=== PATIENT | female | born 1985 | race Two or more races ===

== ENCOUNTER 2024-11-17 05:36 | Emergency (ER) | payer MEDICAID, SELFPAY ==
[2024-11-17] VITALS (8 sets, daily range): BP systolic 143–233; BP diastolic 88–136; PULSE 57–87; RESP 18–20; TEMP 36.8–37.1; O2SAT 97–100; BMI 45.4
--- NOTE | 2024-11-17 05:56 | EKG_ITS ---
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
[2024-11-17] MEDS: METOCLOPRAMIDE INJ 5 MG/ML VIAL 2 ML 10 MG IM (07:03)
[2024-11-17] MEDS: KETOROLAC INJ 60 MG/2 ML VIAL 30 MG IM (07:03)
[2024-11-17] MEDS: Lisinopril 20 MG TABLET PO (07:04)
[2024-11-17] MEDS: DiphenhydrAMINE INJ 50 MG/ML VIAL IM (07:04)
--- NOTE | 2024-11-17 07:17 | PD.EDMEDCL ---
ED Medical Clearance RME/HPI General Chief complaint: Medical Clearance Stated complaint: MEDICAL CLEARANCE Time Seen by Provider: 11/17/24 07:17 Arrival date/time: 11/17/24 05:36 RME / HPI RME / HPI Narrative: 39 year old female with history of chronic migraines, hypertension, currently on Losartan, Carvedilol, Hydralazine, and Hydrochlorothiazide, presents to the ED BIB [facility] for medical clearance today. Per officer, while in [facility] was noted to have elevated blood pressure and advised to bring patient for further management. While in the ED patient complains of a headache that is accompanied by photophobia, nausea, and chest pain which he reports is associated to the headache. No other associated symptoms or complaints reported. Denies fevers, chills, sweats, or shortness of breath. Related Information Previous Rx's ?Medication ?Instructions ?Recorded lisinopril 20 mg tablet 20 mg PO BID #60 tabs 05/23/22 Allergies Allergy/AdvReac Type Severity Reaction Status Date / Time ibuprofen Allergy Hives Verified 05/23/22 13:40 Review of Systems Review of Systems Narrative Review of Systems: Gen: No fever, no chills EYES: No discharge, no pain HEENT: No ear pain, no congestion, no sore throat PULM: no shortness of breath, no cough, no congestion CV: +chest pain, no palpitations, no chest tightness GI: +nausea, no vomiting, no diarrhea, no pain, no constipation : No frequency, no urgency,? no dysuria Musc/skel: No joint pain, no back pain Skin: No rash, no ecchymosis, no lesions Neuro: No weakness, +headache with photophobia Past Medical History Past Medical History CARDIAC: Positive Cardiac Disorders and Hypertension; Negative Congestive Heart Failure RESPIRATORY: Positive Asthma; Negative Chronic Obstructive Pulmonary Disease (COPD) GENITOURINARY: Negative Renal Disease ENDOCRINE: Negative Diabetes Mellitus Type 1 or Diabetes Mellitus Type 2 Surgical History SURGICAL: Positive Abdominal Surgery and Section (x4) Social History SMOKING STATUS: Never smoker ED Exam Narrative Physical exam: GENERAL APPEARANCE: AxOx4, no obvious distress, nontoxic appearing HEENT: NC, AT. MMM. EOMI, clear conjunctiva, oropharynx clear. NECK: Supple without lymphadenopathy. No stiffness or restricted ROM. HEART: Normal rate and regular rhythm, normal S1/S1, no m/r/g LUNGS: CTAB, moving air well. No crackles or wheezes are heard. ABDOMEN: Soft, nontender, nondistended with good bowel sounds heard. BACK: No midline C/T/L spine pain or deformity, No CVAT, no obvious deformity. EXTREMITIES: Without cyanosis, clubbing or edema. MUSCULOSKELETAL: FROM of all major joints, no chest tenderness NEUROLOGICAL: Grossly nonfocal. Alert and oriented, moving all 4 extremities. CN not formally tested but appear grossly intact. Skin: Warm and dry without any rash. Course Quality Measures none Orders Category Date Time Status EKG (ED ONLY) *Do not use* NOW Care 11/17/24 05:56 Completed EKG (ED Only) Stat Exams 11/17/24 05:56 Draft Troponin I Stat Lab 11/17/24 07:38 Completed DiphenhydrAMINE INJ [Benadryl Inj] Med 11/17/24 06:31 Discontinued 50 mg IM X1 ONE Ketorolac Inj [Toradol Inj] Med 11/17/24 06:31 Discontinued 30 mg IM X1 ONE Lisinopril [Prinivil] Med 11/17/24 06:31 Discontinued 20 mg PO X1 ONE Metoclopramide Inj [Reglan Inj] Med 11/17/24 06:31 Discontinued 10 mg IM X1 ONE carVEDILOL [Coreg] Med 11/17/24 09:01 Discontinued 6.25 mg PO X1 ONE hydrALAZINE HCL [Apresoline] Med 11/17/24 08:05 Discontinued 25 mg PO X1 ONE hydroCHLOROthiazide Med 11/17/24 09:01 Discontinued 25 mg PO X1 ONE Reevaluation(s) Reevaluation #1: Blood pressure improved, 143/88. We reviewed all the results, analysis, and treatment plans. Patient is amenable to discharge. Strict return precautions were outlined. Patient was discharged in stable condition. Time: 09:45 Vital Signs Vital signs: Vital Signs Temperature 98.3 F 11/17/24 05:43 Pulse Rate 87 11/17/24 05:43 Respiratory Rate 20 11/17/24 05:43 Blood Pressure 209/135 H 11/17/24 05:43 Pulse Oximetry (%) 100 11/17/24 05:43 Oxygen Delivery Method Room Air 11/17/24 05:43 Pulse ox is 100% on room air which is adequate. Medical Clearance MDM Narrative MDM Narrative:: Aubrie Parker am scribing for and in the presence of Dr. Shell. 39 year old female with known history of hypertension presented to the ED, brought in by [facility] for medical clearance. Patient while in [facility] was noted to have elevated blood pressure. Patient states she is on 4 hypertensive medications which she did not recall the name of. However, external pharmacy records reviewed and medications include Hydrochlorothiazide, Hydralazine, Labetalol, and Carvedilol. In the ED the patient was given Hydrochlorothiazide, Hydralazine, and Lisinopril. Repeat blood pressure 148/88. Patient was cleared for discharge and advised to continue her medications as prescribed. Patient data External records reviewed:: [facility] previous records (I reviewed ED visit on 12/23/2023 for hypertension) Clinical information provided by:: patient and law enforcement Social determinants that could affect healthcare access:: none Patient has the following chronic illnesses:: Hypertension How is presenting disease/condition affected by chronic disease/condition?: exacerbated by Evaluation data The following diagnostics were reviewed and interpreted by me:: lab results and EKG tracing(s) Lab and/or radiology exams considered but not ordered:: None Interpretation Summary: As noted above Medications / Prescriptions Medications or Prescriptions considered but not ordered:: None Medication administrations:: Medication Administration History Discontinued Medications Carvedilol (Carvedilol 3.125 Mg Tablet) 6.25 mg PO X1 ONE Stop: 11/17/24 09:02 Last Admin: 11/17/24 09:20 Dose: Not Given Documented By: DO Non-Admin Reason: hr 57 Diphenhydramine HCl (Diphenhydramine Inj 50 Mg/Ml Vial) 50 mg IM X1 ONE Stop: 11/17/24 06:32 Last Admin: 11/17/24 07:04 Dose: 50 mg Documented By: EF Hydralazine HCl (Hydralazine Hcl 25 Mg Tablet) 25 mg PO X1 ONE Stop: 11/17/24 08:06 Last Admin: 11/17/24 08:29 Dose: 25 mg Documented By: DO Hydrochlorothiazide (Hydrochlorothiazide 12.5 Mg Capsule) 25 mg PO X1 ONE Stop: 11/17/24 09:02 Last Admin: 11/17/24 09:17 Dose: 25 mg Documented By: DO Ketorolac Tromethamine (Ketorolac Inj 60 Mg/2 Ml Vial) 30 mg IM X1 ONE Stop: 11/17/24 06:32 Last Admin: 11/17/24 07:03 Dose: 30 mg Documented By: EF Lisinopril (Lisinopril 20 Mg Tablet) 20 mg PO X1 ONE Stop: 11/17/24 06:32 Last Admin: 11/17/24 07:04 Dose: 20 mg Documented By: EF Metoclopramide HCl (Metoclopramide Inj 5 Mg/Ml Vial 2 Ml) 10 mg IM X1 ONE; Protocol Stop: 11/17/24 06:32 Last Admin: 11/17/24 07:03 Dose: 10 mg Documented By: EF See above Consultations Consultation(s) initiated? (list below): No Diagnosis Medical Clearance Differential Diagnosis: other (Hypertension, hypertensive urgency, hypertensive emergency, medical clearance for incarceration) Most likely diagnosis given after review of the tests above:: Migraine Hypertension Admission Indicated Admission indicated?: not indicated Admission Request Was there a request for admission?: No Disposition Plan Disposition Plan: Discharge Discharge Attestation Discharge Attestation: The patient and all family members were given an opportunity to ask questions and understood the discharge instructions. Discharge instructions specifically effects, indications for sooner follow up or return to the emergency department, and the expected course of current diagnosis. Patient condition: Stable Discharge Plan Plan Patient Disposition: Fdc/Court/Law Prescriptions/Referrals Prescriptions/Med Rec: No Action lisinopril 20 mg tablet 20 mg PO BID Qty: 60 0RF Referrals: Seth Wheat MD [Primary Care Provider] - In 1 week Problem List Clinical Impression: Migraine, Hypertension Patient/Caregiver Discharge Instructions Education Materials: ED Hypertension, Established, ED Headache, Migraine, Classic Additional Instructions: Follow-up with your primary doctor as need. You can return to the emergency department sooner if symptoms worsen or for any new or concerning issues. Print Language: Estonian
[2024-11-17 08:09] LABS: Troponin I < 0.020 ng/mL (0.0-0.045)
[2024-11-17] MEDS: hydrALAZINE HCL 25 MG TABLET PO (08:29)
[2024-11-17] MEDS: hydroCHLOROthiazide 12.5 MG CAPSULE 25 MG PO (09:17)
== END 2024-11-17 09:50 ==
PROVIDERS: Emergency Provider Emergency Medicine; PCP Family Medicine
DX: Z02.89 Encounter for other administrative examinations (principal); G43.909 Migraine, unspecified, not intractable, without status migrainosus; I10 Essential (primary) hypertension; I49.8 Other specified cardiac arrhythmias
CPT/HCPCS: 36415; 84484; 93005; 96372; 99283; J1200; J1885; J2765; A9270

== ENCOUNTER 2025-03-10 15:56 | Emergency (ER) | payer MEDICAID, SELFPAY ==
[2025-03-10 16:30] VITALS: BMI 46.6
[2025-03-10 16:35] VITALS: BP 162/122; BP 167/113; PULSE 81; RESP 12; TEMP 36.5; O2SAT 100
--- NOTE | 2025-03-10 17:19 | XR_ITS ---
Examination: AP chest single view Technique one AP portable semiupright chest single view Date and time: March 10, 2025, 1808 hours INDICATIONS: Chest pain shortness of breath today. FINDINGS: Poor inspiration Minimal prominence left ventricle Mild to moderate vascular congestion The osseous structures are intact IMPRESSION: Poor inspiratory effort chest x-ray Consider repeat better inspiratory effort shows follow-up to exclude vascular congestion
--- NOTE | 2025-03-10 17:19 | EKG_ITS ---
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
--- NOTE | 2025-03-10 17:19 | XR_ITS ---
Examination: CT brain head without contrast. 2-D sagittal coronal reconstructions Date and time of exam:March 10, 2025, 1758 hours Comparison December 23, 2023 INDICATIONS: Onset headaches today CTDI: vol (mGy):79.5 DLP: (mGycm):1609 Technique: Multiple CT axial sections of the brain have been obtained, 5 mm slice thickness. Contrast has not been administered. 2-D sagittal, coronal reconstructions have been obtained Low dose protocols were performed. One or more of the following dose reduction techniques were used; automated exposure control, adjustment of the mA and/or KV according to patient size, use of iterative reconstruction technique. Findings: No significant ventricular enlargement. Intra-axial or extra-axial hemorrhage density is not seen. No mass effect or midline shift Basal cisterns are not remarkable. Fourth ventricle is midline. Cranial vault intact. Impression: Negative for acute hemorrhage, mass effect or midline shift Mild chronic frontal ethmoid sinusitis Advise clinical correlation follow up accordingly
--- NOTE | 2025-03-10 17:20 | EDNOTE_ITS ---
ED Medical Clearance E/HPI General Chief complaint: Medical Clearance Stated complaint: SKILLED NURSING CLEARANCE Time Seen by Provider: 03/10/25 16:32 Arrival date/time: 03/10/25 15:56 RME / HPI RME / HPI Narrative: 39-year-old female patient with significant history of hypertension, morbid obesity, today patient was incarcerated while in the skilled nursing patient's been complaining of headache, chest pain, since this morning, severity moderate. Patient also complained of tingling sensation to the left upper extremity. Patient denies any slurring of speech denies any focal neurologic deficit. Patient is ambulatory. Denies any trauma or fall. Related Information Previous Rx's ?Medication ?Instructions ?Recorded lisinopril 20 mg tablet 20 mg PO BID #60 tabs Allergies Allergy/AdvReac Type Severity Reaction Status Date / Time ibuprofen Allergy Hives Verified 03/10/25 16:35 Review of Systems Review of Systems Narrative Review of Systems: Review of system reviewed and within normal limits except mentioned in HPI ED Exam Narrative Physical exam: VITAL SIGNS: Reviewed. GENERAL APPEARANCE: Alert and interactive, follows commands, no acute distress, HEAD AND FACE: Non-traumatic. ENT: PERRL, pink conjunctivitis, eyelid no trauma, Mucous membrane moist. NECK: Supple, nontender, no nuchal rigidity. CHEST: No tenderness, no crepitus, no paradoxical movement, no retractions. LUNGS: Clear, well ventilated, symmetric, no rales, no wheezing, no ronchi, no stridor, good breath sounds bilaterally. HEART: Regular rate, regular rhythm, no murmur, no gallops. ABDOMEN: Soft, positive bowel sounds, nondistended, no guarding, nontender, no rebound, no masses, RECTAL: Deferred. GENITAL: Deferred. NEUROLOGICAL: Gross motor function intact sensory function intact, Appropriate for age. MUSCULOSKELETAL: low back nontender, full range of motion. EXTREMITIES: Nontender, full range of motion. SKIN: Color pink, dry, no rash, no lacerations, no abrasions, no contusions. LYMPHATICS: Deferred. Course Quality Measures none Orders Category Date Time Status EKG (ED ONLY) *Do not use* NOW Care 03/10/25 17:[address] head/brain wo con Stat Exams 03/10/25 17:19 Completed EKG (ED Only) Stat Exams 03/10/25 17:19 Draft XR chest 1V Stat Exams 03/10/25 17:19 Completed CBC Stat Lab 03/10/25 17:33 Completed Comprehensive Metabolic Panel Stat Lab 03/10/25 17:33 Completed Partial Thromboplastin Time Stat Lab 03/10/25 17:33 Completed Troponin I Stat Lab 03/10/25 17:33 Completed Acetaminophen Tab [Tylenol ES Tab] Med 03/10/25 17:19 Discontinued 1,000 mg PO X1 ONE Nitroglycerin [Nitrostat 1/150] Med 03/10/25 17:19 Discontinued 0.4 mg SL Q5MIN PRN Potassium Chloride [K-Dur] Med 03/10/25 18:33 Discontinued 40 meq PO X1 ONE cloNIDine HCL [Catapres] Med 03/10/25 17:19 Discontinued 0.1 mg PO X1 ONE Vital Signs Vital signs: Vital Signs Temperature 97.7 F 03/10/25 16:35 Pulse Rate 81 03/10/25 16:35 Respiratory Rate 12 03/10/25 16:35 Blood Pressure 162/122 H 03/10/25 16:35 Pulse Oximetry (%) 100 03/10/25 16:35 Oxygen Delivery Method Room Air 03/10/25 16:35 Medical Clearance MDM Narrative MDM Narrative:: 39-year-old female patient with significant history of hypertension, morbid obesity, today patient was incarcerated while in the skilled nursing patient's been complaining of headache, chest pain, since this morning, severity moderate. P atient also complained of tingling sensation to the left upper extremity. Patient denies any slurring of speech denies any focal neurologic deficit. Patient is ambulatory. Denies any trauma or fall. EKG showed junctional rhythm with occasional ventricular premature complexes, ventricular rate of 60 bpm, no ST segment elevation or depression noted. Patient's troponin today came back unremarkable. Chest x-ray came back unremarkable. CT scan of the head also came back normal. Patient blood pressure was noted to be 146/89 prior to discharge back to skilled nursing. Patient is medically cleared for incarceration. Patient data External records reviewed:: None Clinical information provided by:: patient Social determinants that could affect healthcare access:: none Patient has the following chronic illnesses:: Hypertension How is presenting disease/condition affected by chronic disease/condition?: exacerbated by Evaluation data The following diagnostics were reviewed and interpreted by me:: lab results, radiology exam(s) and EKG tracing(s) Lab and/or radiology exams considered but not ordered:: None Interpretation Summary: See results MDM Medications / Prescriptions Medications or Prescriptions considered but not ordered:: None Medication administrations:: Medication Administration History Discontinued Medications Acetaminophen (Acetaminophen 500 Mg Tablet) 1,000 mg PO X1 ONE Stop: 03/10/25 17:20 Last Admin: 03/10/25 17:31 Dose: 1,000 mg Documented By: GINA Clonidine (Clonidine Hcl 0.1 Mg Tablet) 0.1 mg PO X1 ONE Stop: 03/10/25 17:20 Last Admin: 03/10/25 17:31 Dose: 0.1 mg Documented By: GINA Nitroglycerin (Nitroglycerin 0.4 Mg Subl Btl #25) 0.4 mg SL Q5MIN PRN PRN Reason: CHEST PAIN Last Admin: 03/10/25 17:34 Dose: 0.4 mg Documented By: GINA Potassium Chloride (Potassium Chloride 20 Meq Tabcr) 40 meq PO X1 ONE Stop: 03/10/25 18:34 Last Admin: 03/10/25 18:50 Dose: 40 meq Documented By: ELLY Clonidine Tylenol and potassium replacement Consultations Consultation(s) initiated? (list below): No Diagnosis Medical Clearance Differential Diagnosis: other (Medical screening exam) Most likely diagnosis given after review of the tests above:: Medical screening exam Admission Indicated Admission indicated?: not indicated Admission Request Was there a request for admission?: No Disposition Plan Disposition Plan: Discharge Discharge Attestation Discharge Attestation: The patient and all family members were given an opportunity to ask questions and understood the discharge instructions. Discharge instructions specifically effects, indications for sooner follow up or return to the emergency department, and the expected course of current diagnosis. Patient condition: Stable Discharge Plan Plan Patient Disposition: Prison/Court/Law Discharge Disposition comment: Stable Patient condition on transfer: Stable Prescriptions/Referrals Prescriptions/Med Rec: No Action lisinopril 20 mg tablet 20 mg PO BID Qty: 60 0RF Referrals: No Primary/Family,Physician [Primary Care Provider] - In 1 week Problem List Clinical Impression: Medical clearance for incarceration, Hypertension, Chest pain, Headache Patient/Caregiver Discharge Instructions Discharge Activity: activity as tolerated Education Materials: ED Hypertension, Established Additional Instructions: Thank you for the opportunity for serving you today. You are stable for discharged . You are advised to: Follow-up with your PCP in 1 to 2 days when you get out of skilled nursing Return to ED for worsening of symptoms Increase oral fluids Continue taking your blood pressure medication Print Language: St Helen[place] PETER/SARMAD Supervising Physician PA/WIRELESS WATCHER Supervising Physician: MD Marty
[2025-03-10 17:31] VITALS: BP 175/113; PULSE 83
[2025-03-10] MEDS: ACETAMINOPHEN 500 MG TABLET 1000 MG PO (17:31)
[2025-03-10 17:34] VITALS: BP 175/113; PULSE 77
[2025-03-10] MEDS: NITROGLYCERIN 0.4 MG SUBL BTL #25 SL (17:34)
[2025-03-10 17:55] LABS: Basophils # (Auto) 0.0 Thou/mm3 (0.0-0.2); Basophils % (Auto) 0 % (0-2.5); Eosinophils # (Auto) 0.1 Thou/mm3 (0.0-0.5); Eosinophils % (Auto) 1 % (0-10); Hematocrit 38.6 % (36.0-46.0); Hemoglobin 12.6 g/dL (12.0-16.0); Immature Granulocytes Auto 0.01 Thou/mm3 (0.00-0.00); Lymphocytes # (Auto) 2.3 Thou/mm3 (1.0-4.8); Lymphocytes % (Auto) 32 % (10-50); Mean Corpuscular HGB Conc 32.6 g/dl (31.0-37.0); Mean Corpuscular Hemoglobin 28.1 pg (25.0-35.0); Mean Corpuscular Volume 86 fL (80-100); Monocytes # (Auto) 0.6 Thou/mm3 (0.0-0.8); Monocytes % (Auto) 8 % (0-12); Neutrophils # (Auto) 4.1 Thou/mm3 (1.8-7.7); Neutrophils % (Auto) 58 % (37-80); Nucleated Red Blood Cell # 0.00 Thou/mm3 (0.00-0.00); Nucleated Red Blood Cell % 0 /100 WBC (0); Platelet Count 212 Thou/mm3 (140-440); RDW Standard Deviation 45.0 fL (36.4-46.3); Red Blood Count 4.48 Miln/mm3 (4.00-5.20); White Blood Count 7.1 Thou/mm3 (3.6-11.0)
[2025-03-10 18:13] LABS: Partial Thromboplastin Time 30.8 Seconds (22.0-36.0)
[2025-03-10 18:15] VITALS: BP 146/89; BP 162/122; PULSE 66; RESP 18; TEMP 36.4; O2SAT 96
[2025-03-10 18:24] LABS: Alanine Aminotransferase 25 U/L (10-49); Albumin, Serum 4.1 gm/dL (3.5-5.0); Albumin/Globulin Ratio 1.5 (1.2-2.2); Alkaline Phosphatase 80 U/L (46-116); Anion Gap 12 (7-16); Aspartate Amino Transferase 24 U/L (0-34); BUN/Creatinine Ratio 16 Ratio (12-20); Bilirubin,Total 0.8 mg/dL (0.3-1.2); Blood Urea Nitrogen 13 mg/dL (9-23); Calcium 9.0 mg/dL (8.3-10.6); Calcium (Corrected) 9.0 mg/dL (8.5-10.1); Carbon Dioxide 23.7 mMol/L (20.0-31.0); Chloride 105 mMol/L (98-107); Creatinine (Component) 0.8 mg/dL (0.6-1.3); Estimated Creatinine Clearance 137.0 mL/min (>60); Globulin 2.8 gm/dL (2.3-3.5); Glucose 98 mg/dL (74-106); Osmolality,Calculated 281 (275-295); Potassium 3.0 mMol/L (3.4-5.1); Sodium 141 mMol/L (136-145); Total Protein 6.9 gm/dL (5.7-8.2); Troponin I < 0.020 ng/mL (0.0-0.045); eGFR > 60 See Note
== END 2025-03-10 19:22 ==
PROVIDERS: Nurse Practitioner Family; Emergency Provider Emergency Medicine
DX: Z02.89 Encounter for other administrative examinations (principal); I10 Essential (primary) hypertension; R07.9 Chest pain, unspecified; R51.9 Headache, unspecified; R06.02 Shortness of breath; I49.3 Ventricular premature depolarization
CPT/HCPCS: 36415; 70450; 71045; 80053; 84484; 85025; 85730; 93005; 99283; A9270